=== PATIENT | female | born 1980 ===

== ENCOUNTER 2024-07-03 08:56 | Outpatient (CLI) | payer OTHER, SELFPAY ==
--- NOTE | ~2024-07-03 | MR_ITS ---
MRI of the right knee Clinical history: Chondromalacia Technique: Coronal proton density and proton density-weighted images, sagittal proton-density and T2 fat-sat images, and axial proton-density fat-saturated images were acquired. Findings: Anterior and posterior cruciate ligaments are intact. Medial collateral ligament and the la teral collateral ligament complex are intact. Popliteus tendon is intact. There is oblique flap tear of the posterior horn of the medial meniscus. No lateral meniscal tear see n. There is focal mild to moderate chondral malacia along the medial patellar facet. Articular cartilage otherwise is well preserved. Bone marrow signals are unremarkable. Extensor mechanism is intact. No significant joint effusion or Reis's cyst. Impression: Flap tear of the posterior horn of the medial meniscus. 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 Reviewed, dictated and finalized at location . Impression: Flap tear of the posterior horn of the medial meniscus. 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
== END 2024-07-03 08:57 | disposition home or self-care (01) ==
PROVIDERS: PCP Physician Assistant; Visit Provider Physician Assistant
DX: M94.261 Chondromalacia, right knee (principal); S83.241A Other tear of medial meniscus, current injury, right knee, initial encounter; X58.XXXA Exposure to other specified factors, initial encounter
CPT/HCPCS: 73721